=== PATIENT | female | born 1950 | race Caucasian/White ===

== ENCOUNTER 2017-04-06 16:09 | Emergency (ER) | payer MEDICARE, OTHER ==
[2017-04-06] MEDS ORDERED: ONDANSETRON HCL 4 MG/2 ML VIAL ONE (16:28)
[2017-04-06] MEDS ORDERED: FENTANYL 100 MCG/2 ML VIAL ONE (16:29)
[2017-04-06] MEDS ORDERED: KETOROLAC TROMETHAMINE 30 MG/ML VIAL ONE (16:32)
--- NOTE | 2017-04-06 17:25 | ER NURSING DOCUMENTATION ---
Nurse's Notes [facility] Name:Margarita Lord Age:66 yrs Sex:Female :1950 Arrival Date:04/06/2017 Time:16:09 Bed6 Private MD:No PCP, Identified Diagnosis:Humeral Neck Fracture Presentation: 04/06 16:16 Acuity: YESSENIA 3 st 16:16 Presenting complaint: Patient states: [place] AND INJURED LEFT lc SHOULDER. NO LOC. SCRAPES TO HANDS AND KNEES. Care prior to arrival: Medication(s) given: Fentanyl 100MCG 50mcg Intranasal. Mechanism of Injury: Fall from standing position. Trauma event details: Injury occurred in the [facility] Injury occurred in a recreational area. Injury occurred April 06, 2017 Injury occurred at 15:30. 16:16 Method Of Arrival: EMS: 410 16:24 Transition of care: patient was not received from another setting of care. Notified ED lc Physician of patient's arrival and CC. Historical: - Allergies: PENICILLINS; - Home Meds: 1. Prilosec Oral - PMHx: GERD; - PSHx: KNEE SURGERY; - Tetanus: < 10 years < 10 years. - Ebola Screening: : Patient denies travel to an Ebola-affected area in the 21 days before illness onset. No symptoms or risks identified at this time. . - Immunization history: Flu Vaccine < 1 year. - Social history: Smoking status: Patient states was never smoker of tobacco. Screenin:26 Infectious Disease Risk None. Abuse screen: Denies threats or abuse. Denies injuries lc from another. Nutritional screening: No deficits noted. 17:23 Tuberculosis screening: No symptoms or risk factors identified. lc Primary Survey: 16:23 Breathing/Chest: Respiratory pattern: regular, Respiratory effort: spontaneous, lc unlabored. Circulation: Skin temperature: warm. Assessment: 16:19 General: Appears uncomfortable, Behavior is anxious, appropriate for age, cooperative. lc Pain: Complains of pain in anterior aspect of left shoulder Pain does not radiate. Pain currently is 5 out of 10 on a pain scale. Quality of pain is described as throbbing, Pain began 1 hour ago Aggravated by increased activity. Neuro: Level of Consciousness is awake, alert, Oriented to person, place, time, event. Respiratory: Airway is patent Respiratory effort is even, unlabored, Respiratory pattern is regular, symmetrical, Breath sounds are clear bilaterally. GI: Abdomen is non- distended Abd is soft and non tender X 4 quads. Derm: Skin is pale. Musculoskeletal: Circulation, motion, and sensation intact Capillary refill < 3 seconds Range of motion limited in left shoulder Swelling present in anterior aspect of left shoulder. 16:26 See Triage Assessment done by same RN. lc 17:20 Reassessment: Patient states feeling better. Patient states symptoms have improved. Patient appears in no apparent distress at this time. SITTING ON SIDE OF BED, SLING ON, CSM INTACT TO HAND, TOLERATED WELL. FEELS READY FOR DC.. Vital Signs: 16:15 BP 208 / 81; Pulse 96; Resp 18; Temp 98.1; Pulse Ox 96% on 2 lpm NC; Weight 104.33 kg; lc Height 5 ft. 10 in. (177.80 cm); Pain 5/10; 16:50 BP 197 / 90; Pulse 76; Resp 16; Pulse Ox 96% on 2 lpm NC; Pain 4/10; lc 17:21 BP 190 / 84; Pulse 64; Resp 16; Pulse Ox 91% on R/A; Pain 3/10; lc 16:15 Body Mass Index 33.00 (104.33 kg, 177.80 cm) 17:21 TOLD TO RECHECK BP AT HOME AND GET ORTHO APPT [place] Coma Score: 16:30 Eye Response: spontaneous(4). Verbal Response: oriented(5). Motor Response: obeys commands(6). Total: 15. Trauma Score (Adult): 16:15 Eye Response: spontaneous(1); Verbal Response: oriented(1); Motor Response: obeys commands(2); Systolic BP: > 89 mm Hg(4); Respiratory Rate: 10 to 29 per min(4); Emilia Score: 15; Trauma Score: 12 ED Course: 16:09 Patient arrived in ED. ds 16:10 No PCP, Identified is Private Physician. ds 16:13 Caleb Delgado MD is Attending Physician. cd 16:[address] 16:16 Krista Beard, CLARICE is Primary Nurse. lc 16:16 Port Xray Completed. pm1 16:26 Maintain field IV. Dressing intact. Good blood return noted. Site clean & dry. Gauge & lc site: 20G R FA. Oxygen Oxygen administration via nasal cannula @ 2L/min. 16:26 Valuables Remains with patient Patient has correct armband on for positive lc identification. Placed in gown. Bed in low position. Call light in reach. Side rails up X2. Adult w/ patient. Pulse Ox - RN Monitoring Only NIBP On - RN Monitoring Only. Ice pack to injury. Head of bed elevated. 17:19 Shoulder immobilizer applied on left shoulder. Wound care to abrasion, was cleaned with soap and water, dressed with bacitracin band aid. Administered Medications: 16:19 Drug: Toradol 15 mg; Route: IVP; Site: right hand; st 17:19 Follow up: Response: Pain is decreased Outcome: 16:34 Discharge ordered by . min 17:21 Discharged to home via wheelchair, with family. 17:21 Condition: stable 17:21 Discharge Assessment: Patient awake, alert and oriented x 3. No cognitive and/or functional deficits noted. Patient verbalized understanding of disposition instructions. 17:21 Discharge instructions given to patient, family, Instructed on discharge instructions, follow up and referral plans. medication usage, Demonstrated understanding of instructions, medications, Prescriptions given X 1. 17:24 Patient left the ED. 07 10:11 Discharge F/U Call: Spoke with: patient. Are you having any pain? yes. Have you lp filled your prescriptions? yes. Signatures: Sarahi Zhou RN RN st Coleman, Linda, RN RN lc Pavlish, Lena, RN RN lp Srot, Micki, Reg Reg Caleb Herring MD MD cd McBride, Philisha pm1
--- NOTE | 2017-04-06 17:25 | ER PHYSICIAN DOCUMENTATION ---
Physician Documentation [facility] Name:Margarita Lord Age:66 yrs Sex:Female :1950 Arrival Date:04/06/2017 Time:16:09 Bed6 Private MD:No PCP, Identified ED Caleb Young Disposition: 04/06/17 16:34 Discharged to Home/Self Care. Impression: Humeral Neck Fracture. - Condition is Fair. - Discharge Instructions: FRACTURE, Upper Extremity, Dislocated - SHOULDER IMMOBILIZER. - Prescriptions for Hydrocodone- Acetaminophen 5-325 mg Oral - take 1 tablet by ORAL route every 6 hours As needed; 30 tablet. - Medical Reconciliation form form. - Follow up: Private Physician; When: 7 - 10 days; Reason: Recheck today's complaints, Continuance of care. - Problem is new. - Symptoms have improved. - Notes: Maintain your arm in the shoulder immobilizer at all times. Ice packs to left shoulder on 20 minutes, off 20 minutes for 2 - 3 days. Ibuprofen 600mg by mouth every 6 hours with food for 3 - 4 days. Vicodin 1 tab by mouth every 6 hours with food for severe pain. Follow up with an Orthopedic Surgeon in 7 - 8 days upon returning home. HPI: 04/06 16:15 This 66 yrs old Female presents to ER via EMS with complaints of Shoulder cd Injury - LEFT. 16:15 The patient or guardian complains of contusion, decreased range of motion, pain, that cd is acute, swelling. left shoulder. Context: The problem was sustained outdoors, resulted from a fall, The patient experiences decreased range of motion, The patient reports no obvious deformity. Onset: The symptom(s)/episode began/occurred acutely, just prior to arrival. Associated signs and symptoms: The patient has no apparent associated signs or symptoms. Severity of symptoms: At their worst the symptoms were moderate, in the emergency department the symptoms have improved, moderately. Historical: - Allergies: PENICILLINS; - Home Meds: 1. Prilosec Oral - PMHx: GERD; - PSHx: KNEE SURGERY; - Tetanus: < 10 years < 10 years. - Ebola Screening: : Patient denies travel to an Ebola-affected area in the 21 days before illness onset. No symptoms or risks identified at this time. . - Immunization history: Flu Vaccine < 1 year. - Social history: Smoking status: Patient states was never smoker of tobacco. ROS: 16:30 Neck: Negative for injury, pain, stiffness and swelling. cd Cardiovascular: Negative for chest pain, palpitations, edema and pleuritic pain. Respiratory: Negative for shortness of breath, dyspnea on exertion, cough, sputum production, wheezing, hemoptysis and pleuritic chest pain. Abdomen/GI: Negative for abdominal pain, nausea, vomiting, diarrhea, constipation, distension, melena, hematochezia and hematemesis. Back: Negative for injury, pain or muscle spasms. Skin: Negative for injury, rash, itching and discoloration. 16:30 Neuro: Negative for headache, weakness, numbness, tingling, and seizure. cd 16:30 Constitutional: Positive for poor PO intake. 16:30 MS/extremity: Positive for injury or acute deformity, decreased range of motion, deformity, pain, of the left shoulder. 16:30 All other systems are negative. Exam: Head/Face: Normocephalic, atraumatic. Neck: Trachea midline, no thyromegaly or masses palpated, and no cervical lymphadenopathy. Supple, full range of motion without nuchal rigidity, or vertebral point tenderness. No Meningismus. Chest/axilla: Normal chest wall appearance and motion. Nontender with no deformity. No lesions are appreciated. Cardiovascular: Regular rate and rhythm with a normal S1 and S2. No gallops, murmurs, or rubs. Normal PMI, no JVD. No pulse deficits. Respiratory: Lungs have equal breath sounds bilaterally, clear to auscultation and percussion. No rales, rhonchi or wheezes noted. No increased work of breathing, no retractions or nasal flaring. Abdomen/GI: Soft, non-tender, with normal bowel sounds. No distension or tympany. No guarding or rebound. No evidence of tenderness throughout. Back: No spinal tenderness. No costovertebral tenderness. Full range of motion. Skin: Warm, dry with normal turgor. Normal color with no rashes, no lesions, and no evidence of cellulitis. 16:30 Neuro: Awake and alert, GCS 15, oriented to person, place, time, and situation. cd Cranial nerves II-XII grossly intact. Motor strength 5/5 in all extremities. Sensory grossly intact. Cerebellar exam normal. Normal gait. 16:30 Constitutional: The patient appears alert, awake, non-diaphoretic, non-toxic, well developed, well nourished, anxious, in obvious distress, mildly distressed. 16:30 Musculoskeletal/extremity: Extremities: grossly normal except: noted in the left shoulder: decreased ROM, pain, swelling, ROM: the patient is contracted, Circulation is intact in all extremities. Sensation intact. 16:30 Skin: Exam negative for acute changes. Vital Signs: 16:15 BP 208 / 81; Pulse 96; Resp 18; Temp 98.1; Pulse Ox 96% on 2 lpm NC; Weight 104.33 kg; lc Height 5 ft. 10 in. (177.80 cm); Pain 5/10; 16:50 BP 197 / 90; Pulse 76; Resp 16; Pulse Ox 96% on 2 lpm NC; Pain 4/10; lc 17:21 BP 190 / 84; Pulse 64; Resp 16; Pulse Ox 91% on R/A; Pain 3/10; lc 16:15 Body Mass Index 33.00 (104.33 kg, 177.80 cm) 17:21 TOLD TO RECHECK BP AT HOME AND GET ORTHO APPT Emilia Coma Score: 16:30 Eye Response: spontaneous(4). Verbal Response: oriented(5). Motor Response: obeys commands(6). Total: 15. Trauma Score (Adult): 16:15 Eye Response: spontaneous(1); Verbal Response: oriented(1); Motor Response: obeys commands(2); Systolic BP: > 89 mm Hg(4); Respiratory Rate: 10 to 29 per min(4); [place] Score: 15; Trauma Score: 12 MDM: 16:13 Patient medically screened. cd 16:15 Differential diagnosis: Anterior dislocation with fracture, Anterior dislocation cd without fracture, humeral head fracture, Surgical Neck Fracture. Data interpreted: Pulse oximetry: on room air is 91 %. Interpretation: normal. 16:30 Data reviewed: vital signs, nurses notes, old medical records, radiologic studies, and cd as a result, I will discharge patient. 16:40 Counseling: I had a detailed discussion with the patient and/or guardian regarding: the cd historical points, exam findings, and any diagnostic results supporting the discharge/admit diagnosis, radiology results, the need for outpatient follow up, for a recheck, for a referral to a specialist, a orthopedic surgeon, to return to the emergency department if symptoms worsen or persist or if there are any questions or concerns that arise at home. Response to treatment: the patient's symptoms have markedly improved after treatment, the patient's condition has returned to base line, and as a result, I will discharge patient. 04/07 13:49 Order name: SHOULDER; 2V+ [place] [id number]; Complete Time: 10:56 EDTN 04/08 10:56 Interpretation: Abnormal: Left comminuted surgical neck fracture of the left humerus. cd NOT dislocated. 04/06 16:14 Order name: Ice Packs; Complete Time: 16:16 cd 04/06 16:14 Order name: NPO; Complete Time: 16:16 cd 04/06 16:14 Order name: Pulse Ox Continuous; Complete Time: 16:16 cd 04/06 16:27 Order name: Oxygen; Complete Time: 16:27 04/06 16:33 Order name: ORTHO: Shoulder Immobilizer; Complete Time: 17:19 cd Dispensed Medications: 16:19 Drug: Toradol 15 mg; Route: IVP; Site: right hand; st 17:19 Follow up: Response: Pain is decreased lc Signatures: Sarahi Zhou RN RN Krista Joya RN RN Caleb Dalton MD MD
--- NOTE | 2017-04-07 13:35 | RADIOLOGY REPORT ---
Two limited views of the left shoulder demonstrate nondisplaced fractures of the surgical neck and greater tuberosity. Humeral head appears located within the glenoid fossa. No other abnormality is identified. IMPRESSION: Nondisplaced three part fracture of the left proximal humerus. MTDD
== END 2017-04-06 17:25 | disposition home or self-care (01) ==
LOC: EDSEX 16:09 → ER 16:09
DX: S42.232A 3-part fracture of surgical neck of left humerus, initial encounter for closed fracture (principal); S40.012A Contusion of left shoulder, initial encounter; W01.0XXA Fall on same level from slipping, tripping and stumbling without subsequent striking against object, initial encounter; Y92.838 Other recreation area as the place of occurrence of the external cause; Y93.01 Activity, walking, marching and hiking; Z79.899 Other long term (current) drug therapy; Z74.3 Need for continuous supervision
CPT/HCPCS: 73030; 96374; 99283; 99284; A0425; A0427; J1885; J2405; J3010